=== PATIENT | female | born 1985 | race Hispanic/Latino ===

== ENCOUNTER → 2018-03-15 | Outpatient (CLI) | payer OTHER ==
[~2018-03-15] MED LIST: HYDROCODON-ACE1 EA11 PO; KEFLEX500 MG PO; NORCO 7.5-3251 EACH PO
--- NOTE | 2018-03-15 18:02 | Diagnostic Imaging Report ---
EXAM: Thyroid Ultrasound INDICATION: Thyroid enlargement COMPARISON: None TECHNIQUE: Transverse and sagittal images were obtained of the thyroid gland. FINDINGS: Thyroid gland: Size: Right lobe: 5.1 x 1.7 x 1.9 cm, Normal in size Left lobe: 4.1 x 1.6 x 1.5 cm, Normal in size Isthmus: 0.4 cm, Normal in size Appearance: Heterogeneous echotexture without increased vascularity Masses/Nodules: Right lobe: 0.5 x 0.3 x 0.5 cm spongiform (0 pts) nodule in the superior medial pole with smooth margin (0 pts), [id number] (0 pts), hyperechoic (1 pt), and no calcifications (0 pts). TR2, Not Suspicious: No FNA. 0.7 x 0.6 x 0.6 cm solid (2 pts) nodule in the posterior interpolar with smooth margin (0 pts), [id number] (0 pts), hypoechoic (2 pts), and no calcifications (0 pts). TR4a (<1.0 cm): No follow-up. Left lobe: 1.0 x 0.7 x 0.7 cm solid (2 pts) nodule in the superior pole with ill-defined margin (0 pts), [id number]-[id number] (0 pts), hypoechoic (2 pts), and no calcifications (0 pts). TR4a (<1.0 cm): No follow-up. 0.7 x 0.5 x 0.6 cm solid (2 pts) nodule in the interpolar posterior with smooth margin (0 pts), [id number]-[id number]-[id number] (0 pts), isoechoic (1 pt), and no calcifications (0 pts). TR3a (<1.5 cm): No follow-up. Parathyroid: No focal parathyroid masses. Left neck lymph nodes: 1.0 x 0.5 x 2.2 cm. IMPRESSION: 1. Heterogeneous thyroid with increased vascularity, likely subacute thyroiditis. 2. Multinodular thyroid that does not meet criteria for fine needle aspiration or further follow up. TI-RADS Lexicon: TR1, Benign: No FNA TR2, Not Suspicious: No FNA. TR3a (<1.5 cm): No follow-up. TR3b (1.5-2.5 cm), Mildly Suspicious: Follow at 1, 3, 5 years. TR3c (>2.5 cm), Mildly Suspicious: FNA. TR4a (<1.0 cm): No follow-up. TR4b (1.0-1.5 cm), Moderately Suspicious: Follow at 1, 2, 3, 5 years. TR4c (>1.5 cm), Moderately Suspicious: FNA. TR5a (<0.5 cm): No follow-up. TR5b (0.5-1.0 cm), Highly Suspicious: Follow at 1, 2, 3, 4, 5 years. TR5c (>1.0 cm), Highly Suspicious: FNA. *Rebiopsy if new suspicious features *No recommendation at this time for significant interval growth. Nodule Characteristics: * Benign features: cystic, hyperechoic, comet-tail artifact, complete halo * Minor suspicious features: solid, hypoechoic, other calcifications * Major suspicious features: microcalcifications, marked hypoechoic (less than strap muscle), suspicious lymph nodes, taller than wide, lobulated or ill-defined margins. Literature: ACR Thyroid Imaging, Reporting and Data System (TI-RADS): White Paper of the ACR TI-RADS Committee. J Am Ritesh Radiol 2017. Signed by: Dr. Christiano Kennedy M.D. on 03/15/2018 5:58 PM
== END ==
LOC: US 16:38
PROVIDERS: ATTEND Family Medicine
DX: E04.9 Nontoxic goiter, unspecified (principal)
CPT/HCPCS: 76536

== ENCOUNTER → 2018-05-30 | Outpatient (CLI) | payer OTHER ==
--- NOTE | 2018-05-30 18:09 | Diagnostic Imaging Report ---
Exam: Brain MRI without IV contrast History: Headache Comparison studies: None Technique: Sagittal and axial T2 FS, axial DWI, axial T2*GRE, axial T1 FLAIR and axial coronal T2 FLAIR. Intravenous contrast: None Findings: There is incomplete CSF suppression on the axial T2 FLAIR sequence with otherwise normal CSF suppression on the coronal T2 FLAIR sequence. Scalp: Normal in signal. No masses. Bone marrow: Normal in signal intensity. Brain sulci: Appropriate for age. Ventricles: Normal in size. No hydrocephalus. Extra axial spaces: No mass, no fluid collection. Parenchyma: No abnormal signal intensities. No masses, hemorrhage, acute or chronic vascular insults. Suprasellar region: No abnormalities. Craniocervical junction: Patent foramen magnum. No Chiari malformation. Vessels: Normal flow-voids in the arteries and sinuses. IMPRESSION: No intracranial abnormalities identified. Signed by: Dr. Tyson Laureano M.D. on 05/30/2018 6:06 PM
== END ==
LOC: MRI 16:37
PROVIDERS: ATTEND Family Medicine
DX: R51 Headache (principal)
CPT/HCPCS: 70551